=== PATIENT | female | born 1945 | race Caucasian/White ===

== ENCOUNTER 2019-09-18 20:53 | Inpatient (IN) ==
[2019-09-18] MEDS ORDERED: Naloxone 0.4 MG/ML INJ IVP PRN (23:39)
[2019-09-19] MEDS ORDERED: Albuterol 2.5 MG/3 ML NEBULIZER IH PRN (00:19)
[2019-09-19] MEDS ORDERED: Dextrose Gel 15 GM/37.5 ML TUBE PO PRN ×2 (00:21)
[2019-09-19] MEDS ORDERED: D5% in Water 1,000 ML IVC PRN (00:21)
[2019-09-19] MEDS ORDERED: *HR* Dextrose 50 % in Water (Syg) 50 ML SYRINGE IVP PRN (00:21)
[2019-09-19] MEDS: Ipratropium/Albuterol Neb 3 ML IH SCH ×3 (00:38→11:12)
[2019-09-19] MEDS ORDERED: Acetaminophen 325 MG TABLET PO PRN (05:35)
[2019-09-19] MEDS: cefTRIAXone 2,000 MG in Water for inj. (sterile) 20 ML IVP SCH (05:48)
[2019-09-19] MEDS ORDERED: *HR* Heparin 5,000 UNIT/ML VIAL SQ SCH (06:00)
[2019-09-19 06:03] LABS: Magnesium 1.6 mg/dL (1.6-2.6); Phosphorous 3.2 mg/dL (2.7-4.5)
[2019-09-19 06:04] LABS: INR 1.2; Prothrombin Time 13.5 Seconds (9.4-12.1)
[2019-09-19 07:10] LABS: Hematocrit 25.8 % (35.3-44.9); Hemoglobin 7.6 g/dL (11.5-15.4); Immature Platelets 18.6 % (1.1-6.1); Mean Corpuscular HGB Conc 29.5 g/dL (31.6-35.5); Mean Corpuscular Hemoglobin 27.6 pg (28.0-33.3); Mean Corpuscular Volume 93.8 fL (83.0-100.0); Red Blood Count 2.75 M/mcL (3.82-4.97); Red Cell Distribution Width 18.6 % (11.5-14.5); White Blood Count 1.6 K/mcL (4.3-11.1)
[2019-09-19 07:12] LABS: Platelet Count 45 K/mcL (140-400)
[2019-09-19 07:29] LABS: Albumin 2.8 g/dL (3.5-5.7); Albumin/Globulin Ratio 0.9 (1.1-2.2); Bilirubin,Total 0.2 mg/dL (0.3-1.0); Calcium 8.2 mg/dL (8.6-10.3); Potassium 3.5 mEq/L (3.5-5.1); Total Protein 5.8 g/dL (6.4-8.9)
[2019-09-19 07:47] LABS: Lymphocytes # 0.3 K/mcL (0.6-4.6); Monocytes # 0.1 K/mcL (0.0-1.3); Neutrophils # 1.2 K/mcL (1.6-8.9)
[2019-09-19 07:49] LABS: Platelet Estimate Marked Decrease (Normal)
[2019-09-19] MEDS: Insulin LISPRO 300 UNITS/3 ML VIAL SQ SCH ×3 (08:35→16:53)
[2019-09-19] MEDS ORDERED: predniSONE 20 MG TABLET PO SCH (09:00)
[2019-09-19] MEDS ORDERED: Insulin LISPRO 300 UNITS/3 ML VIAL SQ SCH (21:15)
[2019-09-20] MEDS ORDERED: Insulin DETEMIR 100 UNIT/ML X5UNITS SQ ONE ×2 (03:45→07:32)
[2019-09-20 05:25] LABS: Hemoglobin 8.8 g/dL (11.5-15.4); Red Cell Distribution Width 18.6 % (11.5-14.5)
[2019-09-20 05:27] LABS: Hematocrit 28.5 % (35.3-44.9); Immature Platelets 23.3 % (1.1-6.1); Mean Corpuscular HGB Conc 30.9 g/dL (31.6-35.5); Mean Corpuscular Hemoglobin 27.4 pg (28.0-33.3); Mean Corpuscular Volume 88.8 fL (83.0-100.0); Red Blood Count 3.21 M/mcL (3.82-4.97); White Blood Count 1.8 K/mcL (4.3-11.1)
[2019-09-20 05:31] LABS: Platelet Count 74 K/mcL (140-400)
[2019-09-20 05:43] LABS: BUN/Creatinine Ratio 21 (6-26); Blood Urea Nitrogen 21 mg/dL (8-23); Calcium 9.2 mg/dL (8.6-10.3); Carbon Dioxide 20 mEq/L (23-29); Chloride 105 mEq/L (98-107); Glucose 259 mg/dL (70-105); Magnesium 1.8 mg/dL (1.6-2.6); Osmolality,Calculated 288 (280-300); Sodium 133 mEq/L (136-145); eGFR For African Americans > 60 (> 60); eGFR For Non-African Americans 56 (> 60)
[2019-09-20] MEDS ORDERED: tiZANidine 4 MG TABLET PO PRN (07:30)
[2019-09-20 07:36] VITALS: BP 120/83
[2019-09-20] MEDS: cefTRIAXone 2,000 MG in Water for inj. (sterile) 20 ML IVP SCH (07:58)
[2019-09-20] MEDS: Insulin LISPRO 300 UNITS/3 ML VIAL SQ SCH (08:00)
[2019-09-20] MEDS ORDERED: Insulin DETEMIR 100 UNIT/ML X5UNITS SQ SCH (21:00)
[2019-09-20] MEDS ORDERED: Gabapentin 300 MG CAPSULE PO SCH (21:00)
== END 2019-09-20 11:37 | disposition home or self-care (01) | DRG 872 ==
LOC: SUATTDRO 22:39 → ICNU 22:39 → 2NENU 09-19 06:42
PROVIDERS: ADMIT Family Medicine; ATTEND Internal Medicine

== ENCOUNTER 2021-03-21 00:47 | Observation (INO) ==
[2021-03-21] MEDS ORDERED: Ondansetron 4 MG/2 ML VIAL IVP PRN (05:54)
[2021-03-21] MEDS ORDERED: Acetaminophen 325 MG TABLET PO PRN (05:54)
[2021-03-21] MEDS ORDERED: Naloxone 0.4 MG/ML INJ IVP PRN (05:54)
[2021-03-21] MEDS ORDERED: Dextrose Gel 15 GM/37.5 ML TUBE PO PRN ×2 (06:00)
[2021-03-21] MEDS ORDERED: D5% in Water 1,000 ML IVC PRN (06:00)
[2021-03-21] MEDS ORDERED: *HR* Dextrose 50 % in Water (Syg) 50 ML SYRINGE IVP PRN (06:00)
[2021-03-21] MEDS ORDERED: Ipratropium/Albuterol Neb 3 ML IH PRN (06:31)
[2021-03-21] MEDS ORDERED: Pantoprazole 80 MG in 0.9 % Sodium Chloride 50 ML IVPB ONE (06:46)
[2021-03-21] MEDS: Insulin LISPRO 300 UNITS/3 ML VIAL SUBQ SCH ×3 (08:38→17:59)
[2021-03-21] MEDS ORDERED: levoFLOXacin 750 MG/150 ML 750 MG/150 ML BAG IVPB SCH (09:00)
[2021-03-21 09:04] LABS: INR 1.4; Prothrombin Time 15.5 Seconds (9.4-12.1)
[2021-03-21 09:16] LABS: Red Cell Distribution Width 16.4 % (11.5-14.5)
[2021-03-21 09:21] LABS: Red Blood Count 3.41 M/mcL (3.82-4.97); Thyroid Stimulating Hormone 1.479 mcIU/mL (0.340-5.600)
[2021-03-21 09:23] LABS: Hematocrit 28.4 % (35.3-44.9); Hemoglobin 9.1 g/dL (11.5-15.4); Mean Corpuscular Hemoglobin 26.7 pg (28.0-33.3); Mean Corpuscular Volume 83.3 fL (83.0-100.0); Mean Platelet Volume 10.7 fL (9.4-12.4); Neutrophils # 0.4 K/mcL (1.6-8.9); Nucleated Red Blood Cells 2.3 /100 WBC (0); White Blood Count 2.2 K/mcL (4.3-11.1)
[2021-03-21 09:31] LABS: Alanine Aminotransferase 11 Units/L (7-52); Albumin 3.1 g/dL (3.5-5.7); Albumin/Globulin Ratio 0.8 (1.1-2.2); Alkaline Phosphatase 60 Units/L (34-104); Aspartate Amino Transferase 15 Units/L (13-39); BUN/Creatinine Ratio 19 (6-26); Bilirubin,Total 1.1 mg/dL (0.3-1.0); Blood Urea Nitrogen 22 mg/dL (8-23); Calcium 8.9 mg/dL (8.6-10.3); Carbon Dioxide 26 mEq/L (23-29); Chloride 104 mEq/L (98-107); Globulin 3.9 g/dL (2.4-3.5); Glucose 271 mg/dL (70-105); Osmolality,Calculated 295 (280-300); Potassium 4.7 mEq/L (3.5-5.1); Sodium 136 mEq/L (136-145); Troponin I < 0.03 ng/mL (< 0.04); eGFR For African Americans 56 (> 60); eGFR For Non-African Americans 46 (> 60)
[2021-03-21 09:32] LABS: Folate 12.2 ng/mL (3.0-16.0)
[2021-03-21 09:37] LABS: Immature Reticulocyte % 9.8 % (11.0-38.0); Platelet Count 46 K/mcL (140-400); Retculocyte # 0.02 M/mcL (0.05-0.10); Reticulocyte % 0.5 % (1.6-2.8)
[2021-03-21 09:44] LABS: Eosinophils # 0.1 K/mcL (0.0-0.6); Lymphocytes # 1.6 K/mcL (0.6-4.6); Monocytes # 0.1 K/mcL (0.0-1.3)
[2021-03-21 09:45] LABS: Platelet Estimate Decreased (Normal)
[2021-03-21 10:08] LABS: Estimated Average Glucose 232 mg/dl; Hemoglobin A1C 9.7 %
[2021-03-21] MEDS: Pantoprazole 40 MG VIAL IVP SCH (17:59)
[2021-03-21 20:49] LABS: Hematocrit 25.4 % (35.3-44.9); Hemoglobin 8.3 g/dL (11.5-15.4)
[2021-03-22] MEDS: Pantoprazole 40 MG VIAL IVP SCH (05:21)
[2021-03-22 07:45] LABS: Hemoglobin 8.7 g/dL (11.5-15.4); Nucleated Red Blood Cells 1.6 /100 WBC (0)
[2021-03-22 07:47] LABS: Hematocrit 27.3 % (35.3-44.9); Immature Platelets 12.9 % (1.1-6.1); Mean Corpuscular HGB Conc 31.9 g/dL (31.6-35.5); Mean Corpuscular Hemoglobin 26.5 pg (28.0-33.3); Mean Corpuscular Volume 83.2 fL (83.0-100.0); Monocytes # 0.1 K/mcL (0.0-1.3); Red Blood Count 3.28 M/mcL (3.82-4.97); Red Cell Distribution Width 16.3 % (11.5-14.5); White Blood Count 1.9 K/mcL (4.3-11.1)
[2021-03-22 08:00] LABS: Platelet Count 38 K/mcL (140-400)
[2021-03-22] MEDS: Insulin LISPRO 300 UNITS/3 ML VIAL SUBQ SCH ×3 (08:06→17:38)
[2021-03-22 08:36] LABS: BUN/Creatinine Ratio 13 (6-26); Blood Urea Nitrogen 14 mg/dL (8-23); Carbon Dioxide 26 mEq/L (23-29); Chloride 100 mEq/L (98-107); Glucose 282 mg/dL (70-105); Osmolality,Calculated 285 (280-300); Potassium 4.5 mEq/L (3.5-5.1); Sodium 132 mEq/L (136-145); eGFR For African Americans > 60 (> 60); eGFR For Non-African Americans 52 (> 60)
[2021-03-22] MEDS: Insulin DETEMIR 100 UNIT/ML X5UNITS SUBQ SCH (11:05)
[2021-03-22 14:15] LABS: Lymphocytes # 1.5 K/mcL (0.6-4.6); Neutrophils # 0.3 K/mcL (1.6-8.9); Platelet Estimate Marked Decrease (Normal); Reactive Lymphocytes Present (Not Present)
[2021-03-22 14:17] LABS: Anisocytosis 1+ (Not Present)
[2021-03-22] MEDS ORDERED: *HR* HYDROcodone/Acet 5/325 mg TABLET PO PRN (17:31)
[2021-03-22 19:45] LABS: Bacteria,Urine Few per hpf (None-Few); Bilirubin,Urine Negative (Negative); Blood,Urine Moderate (Negative); Clarity,Urine Clear (Clear); Color,Urine Light-Yellow (Yellow); Glucose,Urine (UA) 200 mg/dL (Normal); Ketones,Urine Negative (Negative); Leukocyte Esterase,Urine Small (Negative); Mucus,Urine Few per lpf (None-Few); Nitrite,Urine Negative (Negative); PH,Urine 6.5 pH Units (5.0-8.0); Protein,Urine Trace mg/dL (Neg-Trace); RBC,Urine 0-3 per hpf (0-3); Specific Gravity,Urine 1.011 (1.010-1.025); Urobilinogen,Urine Normal (Normal); WBC,Urine 0-3 per hpf (0-3)
[2021-03-22] MEDS ORDERED: Insulin LISPRO 300 UNITS/3 ML VIAL SUBQ SCH (21:00)
[2021-03-22] MEDS ORDERED: Gabapentin 300 MG CAPSULE PO SCH (21:00)
[2021-03-23 04:56] LABS: Hematocrit 28.4 % (35.3-44.9); Immature Platelets 14.2 % (1.1-6.1); Mean Corpuscular HGB Conc 31.7 g/dL (31.6-35.5); Mean Corpuscular Hemoglobin 26.5 pg (28.0-33.3); Mean Corpuscular Volume 83.8 fL (83.0-100.0); Red Blood Count 3.39 M/mcL (3.82-4.97); Red Cell Distribution Width 16.7 % (11.5-14.5); White Blood Count 2.3 K/mcL (4.3-11.1)
[2021-03-23 04:58] LABS: Platelet Count 34 K/mcL (140-400)
[2021-03-23 05:08] LABS: Potassium 4.3 mEq/L (3.5-5.1)
[2021-03-23] MEDS: Insulin DETEMIR 100 UNIT/ML X5UNITS SUBQ SCH (08:38)
[2021-03-23] MEDS: Insulin LISPRO 300 UNITS/3 ML VIAL SUBQ SCH ×2 (08:38→11:48)
[2021-03-23] MEDS ORDERED: levoFLOXacin 750 MG TABLET PO SCH (09:00)
[2021-03-23] MEDS ORDERED: *HR* Midazolam HCl 2 MG/2 ML VIAL IVP ONE (09:03)
[2021-03-23] MEDS ORDERED: *HR* FentaNYL (PF) 100 MCG/2 ML VIAL IVP ONE (09:03)
[2021-03-23] MEDS ORDERED: 0.9 % Sodium Chloride 500 ML ONE (11:44)
[2021-03-23 13:08] VITALS: BP 106/63; PULSE 79; TEMP 98.2; O2SAT 97
== END 2021-03-23 14:11 | disposition home or self-care (01) ==
LOC: 3ANU → SUATTDRO 05:42
PROVIDERS: ADMIT Family Medicine; ATTEND Internal Medicine

== ENCOUNTER 2021-03-31 21:32 | Observation (INO) ==
[2021-04-01] MEDS ORDERED: Ondansetron 4 MG/2 ML VIAL IVP PRN (10:56)
[2021-04-01] MEDS ORDERED: Naloxone 0.4 MG/ML INJ IVP PRN (10:56)
[2021-04-01] MEDS ORDERED: *HR* Dextrose 50 % in Water (Syg) 50 ML SYRINGE IVP PRN (11:02)
[2021-04-01] MEDS ORDERED: Dextrose Gel 15 GM/37.5 ML TUBE PO PRN ×2 (11:02)
[2021-04-01] MEDS ORDERED: D5% in Water 1,000 ML IVC PRN (11:02)
[2021-04-01 11:36] LABS: Adenovirus Not Detected (Not Detect); Bordetella Pertussis Not Detected (Not Detect); Chlamydophila pneumoniae Not Detected (Not Detect); Coronavirus 229E Not Detected (Not Detect); Coronavirus HKU1 Not Detected (Not Detect); Coronavirus NL63 Not Detected (Not Detect); Coronavirus OC43 Not Detected (Not Detect); Human Metapneumovirus Not Detected (Not Detect); Human Rhinovirus/Enterovirus DETECTED (Not Detect); Influenza A Subtype 2009 H1 Not Detected (Not Detect); Influenza B Not Detected (Not Detect); Mycoplasma pneumoniae Not Detected (Not Detect); Parainfluenza Virus 1 Not Detected (Not Detect); Parainfluenza Virus 2 Not Detected (Not Detect); Parainfluenza Virus 3 Not Detected (Not Detect); Parainfluenza Virus 4 Not Detected (Not Detect); Respiratory Syncytial Virus Not Detected (Not Detect); SARS-CoV-2 Not Detected (Not Detect)
[2021-04-01] MEDS: Insulin LISPRO 300 UNITS/3 ML VIAL SUBQ SCH ×2 (12:00→17:47)
[2021-04-01] MEDS: Pantoprazole 40 MG VIAL IVP SCH ×2 (12:01→18:20)
[2021-04-01 13:05] LABS: Basophils % 0.6 %; Hemoglobin 7.8 g/dL (11.5-15.4); Red Cell Distribution Width 16.4 % (11.5-14.5)
[2021-04-01 13:07] LABS: Eosinophils % 2.3 %; Hematocrit 24.8 % (35.3-44.9); Immature Granulocytes % 0.6 % (0-4); Immature Platelets 16.9 % (1.1-6.1); Lymphocytes % 56.1 %; Mean Corpuscular HGB Conc 31.5 g/dL (31.6-35.5); Mean Corpuscular Hemoglobin 26.2 pg (28.0-33.3); Mean Corpuscular Volume 83.2 fL (83.0-100.0); Monocytes # 0.2 K/mcL (0.0-1.3); Monocytes % 13.3 %; Neutrophils # 0.5 K/mcL (1.6-8.9); Nucleated Red Blood Cells 1.2 /100 WBC (0); Red Blood Count 2.98 M/mcL (3.82-4.97); Segmented Neutrophils % 27.1 %; White Blood Count 1.7 K/mcL (4.3-11.1)
[2021-04-01 13:14] LABS: INR 1.5; Prothrombin Time 16.9 Seconds (9.4-12.1)
[2021-04-01 13:17] LABS: Activated Partial Thrombo Time 30.2 Seconds (26.0-36.0)
[2021-04-01 13:18] LABS: Platelet Count 18 K/mcL (140-400)
[2021-04-01 13:25] LABS: BUN/Creatinine Ratio 20 (6-26); Blood Urea Nitrogen 20 mg/dL (8-23); Calcium 8.9 mg/dL (8.6-10.3); Carbon Dioxide 27 mEq/L (23-29); Chloride 102 mEq/L (98-107); Glucose 65 mg/dL (70-105); Osmolality,Calculated 283 (280-300); Potassium 3.8 mEq/L (3.5-5.1); Sodium 136 mEq/L (136-145); eGFR For African Americans > 60 (> 60); eGFR For Non-African Americans 53 (> 60)
[2021-04-01 13:51] LABS: Platelet Estimate Marked Decrease (Normal)
[2021-04-02] MEDS: Insulin LISPRO 300 UNITS/3 ML VIAL SUBQ SCH ×4 (01:36→17:39)
[2021-04-02] MEDS: Pantoprazole 40 MG VIAL IVP SCH (05:53)
[2021-04-02 06:17] LABS: Hematocrit 24.7 % (35.3-44.9); Immature Granulocytes % 1.3 % (0-4); Lymphocytes # 0.9 K/mcL (0.6-4.6); Mean Corpuscular HGB Conc 32.4 g/dL (31.6-35.5); Mean Corpuscular Hemoglobin 26.8 pg (28.0-33.3); Mean Corpuscular Volume 82.6 fL (83.0-100.0); Monocytes # 0.2 K/mcL (0.0-1.3); Monocytes % 13.9 %; Neutrophils # 0.4 K/mcL (1.6-8.9); Nucleated Red Blood Cells 1.3 /100 WBC (0); Red Blood Count 2.99 M/mcL (3.82-4.97); Red Cell Distribution Width 16.1 % (11.5-14.5); Segmented Neutrophils % 25.8 %; White Blood Count 1.5 K/mcL (4.3-11.1)
[2021-04-02 06:22] LABS: Platelet Count 13 K/mcL (140-400)
[2021-04-02 06:25] LABS: Platelet Estimate Marked Decrease (Normal)
[2021-04-02 06:29] LABS: INR 1.5; Prothrombin Time 16.5 Seconds (9.4-12.1)
[2021-04-02 06:35] LABS: BUN/Creatinine Ratio 18 (6-26); Blood Urea Nitrogen 16 mg/dL (8-23); Calcium 8.7 mg/dL (8.6-10.3); Carbon Dioxide 26 mEq/L (23-29); Chloride 101 mEq/L (98-107); Glucose 226 mg/dL (70-105); Osmolality,Calculated 286 (280-300); Potassium 3.8 mEq/L (3.5-5.1); Sodium 134 mEq/L (136-145); eGFR For African Americans > 60 (> 60); eGFR For Non-African Americans > 60 (> 60)
[2021-04-02] MEDS ORDERED: levoFLOXacin 750 MG/150 ML 750 MG/150 ML BAG IVPB SCH (09:00)
[2021-04-02] MEDS ORDERED: Insulin DETEMIR 100 UNIT/ML X5UNITS SUBQ SCH (21:00)
[2021-04-02] MEDS: Gabapentin 300 MG CAPSULE PO SCH (21:21)
[2021-04-03 06:26] LABS: Hematocrit 22.8 % (35.3-44.9)
[2021-04-03 06:28] LABS: Hemoglobin 7.5 g/dL (11.5-15.4); Immature Platelets 16.9 % (1.1-6.1); Mean Corpuscular HGB Conc 32.9 g/dL (31.6-35.5); Mean Corpuscular Hemoglobin 27.1 pg (28.0-33.3); Mean Corpuscular Volume 82.3 fL (83.0-100.0); Red Blood Count 2.77 M/mcL (3.82-4.97); Red Cell Distribution Width 15.8 % (11.5-14.5); White Blood Count 1.6 K/mcL (4.3-11.1)
[2021-04-03 06:36] LABS: Platelet Count 20 K/mcL (140-400)
[2021-04-03 06:58] LABS: BUN/Creatinine Ratio 16 (6-26); Blood Urea Nitrogen 14 mg/dL (8-23); Calcium 8.9 mg/dL (8.6-10.3); Carbon Dioxide 25 mEq/L (23-29); Chloride 101 mEq/L (98-107); Glucose 104 mg/dL (70-105); Magnesium 1.5 mg/dL (1.6-2.6); Osmolality,Calculated 283 (280-300); Potassium 3.8 mEq/L (3.5-5.1); Sodium 136 mEq/L (136-145); eGFR For African Americans > 60 (> 60); eGFR For Non-African Americans > 60 (> 60)
[2021-04-03 07:11] LABS: Ferritin > 1500 ng/mL (10-120)
[2021-04-03 07:14] LABS: Folate 10.4 ng/mL (3.0-16.0)
[2021-04-03] MEDS: Gabapentin 300 MG CAPSULE PO SCH (09:50)
[2021-04-03] MEDS: Insulin LISPRO 300 UNITS/3 ML VIAL SUBQ SCH ×2 (09:50→12:54)
[2021-04-03 12:43] VITALS: BP 116/61; PULSE 102; TEMP 99; O2SAT 90
[2021-04-04] MEDS ORDERED: levoFLOXacin 750 MG/150 ML 750 MG/150 ML BAG IVPB SCH (09:00)
== END 2021-04-03 14:29 | disposition home or self-care (01) ==
LOC: 3ANU → SUATTDRO 04-01 09:37
PROVIDERS: ADMIT Family Medicine; ATTEND Internal Medicine

== ENCOUNTER 2021-04-11 18:05 | Inpatient (IN) ==
[2021-04-11 19:13] LABS: Basophils % 0.6 %; Eosinophils % 1.8 %; Immature Granulocytes % 3.6 % (0-4); Lymphocytes # 0.6 K/mcL (0.6-4.6); Lymphocytes % 37.1 %; Mean Corpuscular HGB Conc 31.6 g/dL (31.6-35.5); Mean Corpuscular Hemoglobin 26.7 pg (28.0-33.3); Mean Corpuscular Volume 84.4 fL (83.0-100.0); Monocytes # 0.4 K/mcL (0.0-1.3); Monocytes % 22.2 %; Neutrophils # 0.6 K/mcL (1.6-8.9); Red Blood Count 2.25 M/mcL (3.82-4.97); Red Cell Distribution Width 15.8 % (11.5-14.5); Segmented Neutrophils % 34.7 %; White Blood Count 1.7 K/mcL (4.3-11.1)
[2021-04-11 19:38] LABS: BUN/Creatinine Ratio 14 (6-26); Blood Urea Nitrogen 14 mg/dL (8-23); Calcium 8.2 mg/dL (8.6-10.3); Carbon Dioxide 26 mEq/L (23-29); Chloride 99 mEq/L (98-107); Glucose 298 mg/dL (70-105); Osmolality,Calculated 286 (280-300); Potassium 4.1 mEq/L (3.5-5.1); Sodium 132 mEq/L (136-145); Troponin I < 0.03 ng/mL (< 0.04); eGFR For African Americans > 60 (> 60); eGFR For Non-African Americans 53 (> 60)
[2021-04-11 19:41] LABS: Hypochromasia Present (Not Present); Microcytosis Present (Not Present); Platelet Count 20 K/mcL (140-400); Platelet Estimate Decreased (Normal)
[2021-04-11] MEDS ORDERED: 0.9 % Sodium Chloride 250 ML ONE (20:27)
[2021-04-11] MEDS ORDERED: Ondansetron 4 MG/2 ML VIAL IVP PRN (22:59)
[2021-04-11] MEDS ORDERED: Naloxone 0.4 MG/ML INJ IVP PRN (22:59)
[2021-04-11] MEDS ORDERED: Insulin DETEMIR 100 UNIT/ML X5UNITS SUBQ SCH (23:45)
[2021-04-11] MEDS ORDERED: Ipratropium/Albuterol Neb 3 ML IH PRN (23:50)
[2021-04-11] MEDS ORDERED: *HR* Dextrose 50 % in Water (Syg) 50 ML SYRINGE IVP PRN (23:50)
[2021-04-11] MEDS ORDERED: D5% in Water 1,000 ML IVC PRN (23:50)
[2021-04-11] MEDS ORDERED: Dextrose Gel 15 GM/37.5 ML TUBE PO PRN ×2 (23:50)
[2021-04-11] MEDS ORDERED: *HR* HYDROcodone/Acet 5/325 mg TABLET PO PRN (23:56)
[2021-04-12 00:57] LABS: Adenovirus Not Detected (Not Detect); Bordetella Pertussis Not Detected (Not Detect); Chlamydophila pneumoniae Not Detected (Not Detect); Coronavirus 229E Not Detected (Not Detect); Coronavirus HKU1 Not Detected (Not Detect); Coronavirus NL63 Not Detected (Not Detect); Coronavirus OC43 Not Detected (Not Detect); Human Metapneumovirus Not Detected (Not Detect); Human Rhinovirus/Enterovirus Not Detected (Not Detect); Influenza A Subtype 2009 H1 Not Detected (Not Detect); Influenza B Not Detected (Not Detect); Mycoplasma pneumoniae Not Detected (Not Detect); Parainfluenza Virus 1 Not Detected (Not Detect); Parainfluenza Virus 2 Not Detected (Not Detect); Parainfluenza Virus 3 Not Detected (Not Detect); Parainfluenza Virus 4 Not Detected (Not Detect); Respiratory Syncytial Virus Not Detected (Not Detect); SARS-CoV-2 Not Detected (Not Detect)
[2021-04-12 01:49] LABS: Basophils % 0.5 %; Eosinophils % 1.9 %; Hematocrit 23.3 % (35.3-44.9); Hemoglobin 7.5 g/dL (11.5-15.4); Immature Granulocytes % 2.8 % (0-4); Immature Platelets 14.5 % (1.1-6.1); Lymphocytes % 52.3 %; Mean Corpuscular HGB Conc 32.2 g/dL (31.6-35.5); Mean Corpuscular Hemoglobin 27.6 pg (28.0-33.3); Mean Corpuscular Volume 85.7 fL (83.0-100.0); Monocytes # 0.3 K/mcL (0.0-1.3); Monocytes % 14.8 %; Neutrophils # 0.6 K/mcL (1.6-8.9); Red Blood Count 2.72 M/mcL (3.82-4.97); Segmented Neutrophils % 27.7 %; White Blood Count 2.2 K/mcL (4.3-11.1)
[2021-04-12 01:58] LABS: Lymphocytes # 1.2 K/mcL (0.6-4.6)
[2021-04-12 02:00] LABS: Platelet Count 21 K/mcL (140-400)
[2021-04-12 02:05] LABS: BUN/Creatinine Ratio 16 (6-26); Blood Urea Nitrogen 16 mg/dL (8-23); Calcium 8.2 mg/dL (8.6-10.3); Carbon Dioxide 24 mEq/L (23-29); Chloride 100 mEq/L (98-107); Glucose 361 mg/dL (70-105); Osmolality,Calculated 290 (280-300); Potassium 3.7 mEq/L (3.5-5.1); Sodium 132 mEq/L (136-145); eGFR For African Americans > 60 (> 60); eGFR For Non-African Americans 56 (> 60)
[2021-04-12 02:36] LABS: Anisocytosis 1+ (Not Present); Microcytosis Present (Not Present); Platelet Estimate Marked Decrease (Normal); Reactive Lymphocytes Present (Not Present)
[2021-04-12] MEDS ORDERED: Vancomycin 1,500 MG/265 ML IV.SOLN IVPB ONE (03:00)
[2021-04-12 05:46] LABS: VBG HCO3 25 mEq/L (21-27); VBG PCO2 37 mmHg (41-51); VBG PH 7.44 pH Units (7.32-7.42); VBG PO2 147 mmHg (25-50)
[2021-04-12] MEDS ORDERED: Cefepime HCl 1,000 MG in Water for inj. (sterile) 10 ML IVP SCH (06:00)
[2021-04-12] MEDS ORDERED: *HR* Enoxaparin 40 MG/0.4 ML SYRINGE SQ SCH (06:00)
[2021-04-12 06:15] LABS: Albumin 2.6 g/dL (3.5-5.7); Albumin/Globulin Ratio 0.8 (1.1-2.2); Bilirubin,Direct 0.2 mg/dL (0.0-0.2); Bilirubin,Indirect 0.7 mg/dL (0.0-1.0); Bilirubin,Total 0.9 mg/dL (0.3-1.0); Globulin 3.4 g/dL (2.4-3.5)
[2021-04-12] MEDS: Gabapentin 300 MG CAPSULE PO SCH ×3 (07:52→21:23)
[2021-04-12] MEDS: Insulin LISPRO 300 UNITS/3 ML VIAL SUBQ SCH ×3 (07:53→17:35)
[2021-04-12] MEDS ORDERED: Insulin LISPRO 300 UNITS/3 ML VIAL SUBQ SCH (08:00)
[2021-04-12 11:59] LABS: Hematocrit 31.3 % (35.3-44.9)
[2021-04-12 12:01] LABS: Hemoglobin 9.9 g/dL (11.5-15.4)
[2021-04-12] MEDS ORDERED: Ipratropium Neb 0.5 MG NEBULIZER IH PRN (13:20)
[2021-04-12] MEDS: Doxycycline 100 MG in 0.9 % Sodium Chloride Mini Bag 100 ML IVPB SCH (15:17)
[2021-04-12] MEDS: Ipratropium/Albuterol Neb 3 ML IH SCH ×2 (16:09→20:07)
[2021-04-12] MEDS: Cefepime HCl 2,000 MG in Water for inj. (sterile) 20 ML IVP SCH (17:29)
[2021-04-12] MEDS: Acetaminophen 325 MG TABLET PO PRN (17:29)
[2021-04-12] MEDS ORDERED: Cefepime HCl 2,000 MG in 0.9 % Sodium Chloride Mini Bag 100 ML IVPB ONE (21:39)
[2021-04-13] MEDS: Doxycycline 100 MG in 0.9 % Sodium Chloride Mini Bag 100 ML IVPB SCH ×2 (02:48→17:13)
[2021-04-13] MEDS ORDERED: Vancomycin 1,250 MG/262.5 ML IV.SOLN IVPB SCH (03:00)
[2021-04-13] MEDS: Acetaminophen 325 MG TABLET PO PRN ×2 (03:46→14:09)
[2021-04-13] MEDS: Ipratropium/Albuterol Neb 3 ML IH SCH ×4 (04:18→20:06)
[2021-04-13] MEDS: Cefepime HCl 2,000 MG in Water for inj. (sterile) 20 ML IVP SCH ×2 (05:38→17:12)
[2021-04-13 06:48] LABS: Red Cell Distribution Width 15.2 % (11.5-14.5)
[2021-04-13 06:50] LABS: Hematocrit 27.5 % (35.3-44.9); Hemoglobin 8.9 g/dL (11.5-15.4); Immature Platelets 17.1 % (1.1-6.1); Mean Corpuscular HGB Conc 32.4 g/dL (31.6-35.5); Mean Corpuscular Hemoglobin 27.2 pg (28.0-33.3); Mean Corpuscular Volume 84.1 fL (83.0-100.0); Red Blood Count 3.27 M/mcL (3.82-4.97); White Blood Count 1.9 K/mcL (4.3-11.1)
[2021-04-13 06:54] LABS: Platelet Count 18 K/mcL (140-400)
[2021-04-13 07:10] LABS: BUN/Creatinine Ratio 17 (6-26); Blood Urea Nitrogen 13 mg/dL (8-23); Calcium 8.3 mg/dL (8.6-10.3); Carbon Dioxide 25 mEq/L (23-29); Chloride 104 mEq/L (98-107); Glucose 224 mg/dL (70-105); Magnesium 1.4 mg/dL (1.6-2.6); Osmolality,Calculated 289 (280-300); Potassium 3.4 mEq/L (3.5-5.1); Sodium 136 mEq/L (136-145); eGFR For African Americans > 60 (> 60); eGFR For Non-African Americans > 60 (> 60)
[2021-04-13 07:28] LABS: Bacteria,Urine Few per hpf (None-Few); Bilirubin,Urine Negative (Negative); Blood,Urine Negative (Negative); Clarity,Urine Clear (Clear); Color,Urine Light-Yellow (Yellow); Glucose,Urine (UA) Normal (Normal); Ketones,Urine Negative (Negative); Leukocyte Esterase,Urine Moderate (Negative); Nitrite,Urine Negative (Negative); PH,Urine 6.5 pH Units (5.0-8.0); Protein,Urine Trace mg/dL (Neg-Trace); Specific Gravity,Urine 1.012 (1.010-1.025); Squamous Epithelial Cell,Urine Few per hpf (None-Few); Urobilinogen,Urine Normal (Normal); WBC,Urine 30-50 per hpf (0-3)
[2021-04-13] MEDS: Gabapentin 300 MG CAPSULE PO SCH ×2 (07:46→20:17)
[2021-04-13] MEDS ORDERED: Furosemide 20 MG/2 ML VIAL IVP ONE (07:55)
[2021-04-13] MEDS ORDERED: Potassium Chloride 20 MEQ, Lidocaine 1% 2 ML in 0.9 % Sodium Chloride 250 ML IVPB ONE (07:57)
[2021-04-13 07:59] LABS: Lymphocytes # 1.1 K/mcL (0.6-4.6); Monocytes # 0.1 K/mcL (0.0-1.3); Neutrophils # 0.6 K/mcL (1.6-8.9)
[2021-04-13 08:00] LABS: Large Platelets Present (Not Present); Platelet Estimate Marked Decrease (Normal)
[2021-04-13 08:01] LABS: Anisocytosis 1+ (Not Present); Microcytosis Present (Not Present)
[2021-04-13] MEDS: Insulin LISPRO 300 UNITS/3 ML VIAL SUBQ SCH ×3 (08:47→17:18)
[2021-04-13] MEDS ORDERED: 0.9 % Sodium Chloride 250 ML ONE (12:19)
[2021-04-13] MEDS ORDERED: *HR* Propofol 200 MG/20 ML VIAL IVP ONE (12:40)
[2021-04-13] MEDS ORDERED: *HR* Succinylcholine 200 MG/10 ML VIAL IVP ONE (12:40)
[2021-04-13] MEDS ORDERED: Lidocaine -MPF 2% 5 ML VIAL ONE (12:41)
[2021-04-13] MEDS ORDERED: Lidocaine HCL 4 ML Topical Solution (Laryng-O-Jet Kit Sterile Pak) TP ONE (15:07)
[2021-04-13] MEDS ORDERED: *HR* FentaNYL (PF) 100 MCG/2 ML VIAL ONE (15:31)
[2021-04-13] MEDS ORDERED: Ondansetron 4 MG/2 ML VIAL ONE (15:36)
[2021-04-13] MEDS ORDERED: *HR* EPINEPHrine 1 MG/10 ML SYRINGE INTRATRACH PRN (16:01)
[2021-04-13 22:28] LABS: Appearance of Body Fluid Cloudy (Clear); Volume of Body Fluid 14 mL
[2021-04-13 22:36] LABS: Appearance of Body Fluid Hazy (Clear); Volume of Body Fluid 8 mL
[2021-04-14] MEDS: Doxycycline 100 MG in 0.9 % Sodium Chloride Mini Bag 100 ML IVPB SCH ×2 (02:59→14:26)
[2021-04-14] MEDS: Ipratropium/Albuterol Neb 3 ML IH SCH ×4 (04:21→20:41)
[2021-04-14 04:43] LABS: Hemoglobin 8.8 g/dL (11.5-15.4); Red Cell Distribution Width 15.5 % (11.5-14.5)
[2021-04-14 04:45] LABS: Hematocrit 27.8 % (35.3-44.9); Immature Platelets 10.6 % (1.1-6.1); Mean Corpuscular HGB Conc 31.7 g/dL (31.6-35.5); Mean Corpuscular Hemoglobin 27.6 pg (28.0-33.3); Mean Corpuscular Volume 87.1 fL (83.0-100.0); Mean Platelet Volume 12.4 fL (9.4-12.4); Monocytes # 0.2 K/mcL (0.0-1.3); Red Blood Count 3.19 M/mcL (3.82-4.97); White Blood Count 1.4 K/mcL (4.3-11.1)
[2021-04-14 04:52] LABS: Platelet Count 36 K/mcL (140-400)
[2021-04-14 05:01] LABS: BUN/Creatinine Ratio 22 (6-26); Blood Urea Nitrogen 20 mg/dL (8-23); Calcium 8.3 mg/dL (8.6-10.3); Carbon Dioxide 24 mEq/L (23-29); Chloride 101 mEq/L (98-107); Glucose 455 mg/dL (70-105); Osmolality,Calculated 298 (280-300); Potassium 4.8 mEq/L (3.5-5.1); Sodium 133 mEq/L (136-145); eGFR For African Americans > 60 (> 60); eGFR For Non-African Americans > 60 (> 60)
[2021-04-14] MEDS: Cefepime HCl 2,000 MG in Water for inj. (sterile) 20 ML IVP SCH ×2 (05:14→18:17)
[2021-04-14] MEDS: Gabapentin 300 MG CAPSULE PO SCH ×2 (08:06→21:42)
[2021-04-14] MEDS: Insulin LISPRO 300 UNITS/3 ML VIAL SUBQ SCH ×3 (08:07→16:35)
[2021-04-14 08:09] LABS: Lymphocytes # 0.7 K/mcL (0.6-4.6); Neutrophils # 0.5 K/mcL (1.6-8.9); Platelet Estimate Marked Decrease (Normal); Reactive Lymphocytes Present (Not Present)
[2021-04-14 08:11] LABS: Microcytosis Present (Not Present); Poikilocytosis 1+ (Not Present)
[2021-04-14] MEDS ORDERED: E-Z-HD (BARIUM SULF) SUSPENSION PO ONE (12:16)
[2021-04-14] MEDS ORDERED: E-Z-PAQUE (BARIUM SULF) SUSP 1 BOTTLE PO ONE (12:16)
[2021-04-14] MEDS ORDERED: Insulin DETEMIR 100 UNIT/ML X5UNITS SUBQ SCH (21:00)
[2021-04-14] MEDS: metroNIDAZOLE 500 MG TABLET PO SCH (21:43)
[2021-04-14] MEDS: Acetaminophen 325 MG TABLET PO PRN (23:03)
[2021-04-15] MEDS: Doxycycline 100 MG in 0.9 % Sodium Chloride Mini Bag 100 ML IVPB SCH (02:51)
[2021-04-15 03:57] LABS: Basophils % 0.4 %; Hemoglobin 9.1 g/dL (11.5-15.4)
[2021-04-15 03:59] LABS: Eosinophils % 1.3 %; Immature Granulocytes % 2.6 % (0-4); Immature Platelets 11.3 % (1.1-6.1); Lymphocytes # 1.5 K/mcL (0.6-4.6); Lymphocytes % 66.7 %; Mean Corpuscular HGB Conc 32.5 g/dL (31.6-35.5); Mean Corpuscular Volume 86.2 fL (83.0-100.0); Monocytes # 0.4 K/mcL (0.0-1.3); Monocytes % 16.5 %; Neutrophils # 0.3 K/mcL (1.6-8.9); Red Blood Count 3.25 M/mcL (3.82-4.97); Red Cell Distribution Width 15.1 % (11.5-14.5); Segmented Neutrophils % 12.5 %; White Blood Count 2.3 K/mcL (4.3-11.1)
[2021-04-15 04:15] LABS: Platelet Count 36 K/mcL (140-400)
[2021-04-15 04:19] LABS: BUN/Creatinine Ratio 22 (6-26); Blood Urea Nitrogen 20 mg/dL (8-23); Calcium 8.6 mg/dL (8.6-10.3); Carbon Dioxide 27 mEq/L (23-29); Chloride 104 mEq/L (98-107); Glucose 167 mg/dL (70-105); Magnesium 1.6 mg/dL (1.6-2.6); Osmolality,Calculated 292 (280-300); Potassium 3.6 mEq/L (3.5-5.1); Sodium 138 mEq/L (136-145); eGFR For African Americans > 60 (> 60); eGFR For Non-African Americans 59 (> 60)
[2021-04-15] MEDS: Ipratropium/Albuterol Neb 3 ML IH SCH ×2 (04:27→08:10)
[2021-04-15 04:40] LABS: Platelet Estimate Decreased (Normal)
[2021-04-15] MEDS: Cefepime HCl 2,000 MG in Water for inj. (sterile) 20 ML IVP SCH (05:56)
[2021-04-15 07:15] VITALS: BP 124/59; PULSE 110; TEMP 98.5; O2SAT 95
[2021-04-15] MEDS: Insulin LISPRO 300 UNITS/3 ML VIAL SUBQ SCH (07:47)
[2021-04-15] MEDS: metroNIDAZOLE 500 MG TABLET PO SCH (08:13)
[2021-04-15] MEDS: Gabapentin 300 MG CAPSULE PO SCH (08:13)
== END 2021-04-15 09:58 | disposition home or self-care (01) | DRG 981 ==
LOC: EMEROOARM 18:05 → 3ANU 18:05 → SUATTDRO 21:51 → 3ANU 22:29
PROVIDERS: ADMIT Student in an Organized Health Care Education/Training Program; ATTEND Internal Medicine

== ENCOUNTER 2021-04-22 12:47 | Observation (INO) ==
[2021-04-22 13:31] LABS: Red Blood Count 3.09 M/mcL (3.82-4.97)
[2021-04-22 13:33] LABS: Hematocrit 26.5 % (35.3-44.9); Hemoglobin 8.5 g/dL (11.5-15.4); Immature Platelets 23.9 % (1.1-6.1); Lymphocytes # 0.9 K/mcL (0.6-4.6); Mean Corpuscular HGB Conc 32.1 g/dL (31.6-35.5); Mean Corpuscular Hemoglobin 27.5 pg (28.0-33.3); Mean Corpuscular Volume 85.8 fL (83.0-100.0); Platelet Count 40 K/mcL (140-400); Red Cell Distribution Width 14.7 % (11.5-14.5); White Blood Count 2.2 K/mcL (4.3-11.1)
[2021-04-22 13:38] LABS: INR 1.6; Prothrombin Time 17.5 Seconds (9.4-12.1)
[2021-04-22 13:48] LABS: Alanine Aminotransferase 5 Units/L (7-52); Albumin 2.8 g/dL (3.5-5.7); Albumin/Globulin Ratio 0.8 (1.1-2.2); Alkaline Phosphatase 45 Units/L (34-104); Aspartate Amino Transferase 9 Units/L (13-39); BUN/Creatinine Ratio 17 (6-26); Bilirubin,Indirect 0.4 mg/dL (0.0-1.0); Bilirubin,Total 0.4 mg/dL (0.3-1.0); Blood Urea Nitrogen 14 mg/dL (8-23); Calcium 8.7 mg/dL (8.6-10.3); Carbon Dioxide 28 mEq/L (23-29); Chloride 94 mEq/L (98-107); Creatine Kinase 27 Units/L (30-223); Globulin 3.7 g/dL (2.4-3.5); Glucose 340 mg/dL (70-105); Osmolality,Calculated 284 (280-300); Potassium 4.3 mEq/L (3.5-5.1); Sodium 130 mEq/L (136-145); Total Protein 6.5 g/dL (6.4-8.9); Troponin I < 0.03 ng/mL (< 0.04); eGFR For African Americans > 60 (> 60); eGFR For Non-African Americans > 60 (> 60)
[2021-04-22 13:51] LABS: Bilirubin,Urine Negative (Negative); Blood,Urine Negative (Negative); Clarity,Urine Clear (Clear); Color,Urine Yellow (Yellow); Glucose,Urine (UA) >=1000 mg/dL (Normal); Ketones,Urine 40 mg/dL (Negative); Leukocyte Esterase,Urine Negative (Negative); Nitrite,Urine Negative (Negative); Protein,Urine 50 mg/dL (Neg-Trace); Specific Gravity,Urine 1.024 (1.010-1.025); Squamous Epithelial Cell,Urine Few per hpf (None-Few); Urobilinogen,Urine Normal (Normal)
[2021-04-22 13:58] LABS: Monocytes # 0.1 K/mcL (0.0-1.3); Neutrophils # 0.9 K/mcL (1.6-8.9)
[2021-04-22 13:59] LABS: Platelet Estimate Marked Decrease (Normal)
[2021-04-22] MEDS ORDERED: Naloxone 0.4 MG/ML INJ IVP PRN (15:32)
[2021-04-22] MEDS ORDERED: *HR* Promethazine 25 MG/ML VIAL IM PRN (15:32)
[2021-04-22] MEDS ORDERED: Ondansetron 4 MG/2 ML VIAL IVP PRN (15:32)
[2021-04-22] MEDS ORDERED: Acetaminophen 325 MG TABLET PO PRN (15:32)
[2021-04-22] MEDS ORDERED: Melatonin 3 MG TABLET PO PRN (15:32)
[2021-04-22 16:11] LABS: Influenza A PCR Negative (Negative); Influenza B PCR Negative (Negative); Resp. Syncytial Virus PCR Negative (Negative)
[2021-04-22 16:13] LABS: SARS-CoV-2 by PCR (In House) Negative (Negative)
[2021-04-22 16:14] LABS: VBG HCO3 28 mEq/L (21-27); VBG PCO2 39 mmHg (41-51); VBG PH 7.46 pH Units (7.32-7.42); VBG PO2 189 mmHg (25-50)
[2021-04-22] MEDS: Ringers Solution, Lactated 1,000 ML IVC SCH (20:23)
[2021-04-22] MEDS ORDERED: Insulin DETEMIR 100 UNIT/ML X5UNITS SUBQ SCH (21:00)
[2021-04-23] MEDS: Ringers Solution, Lactated 1,000 ML IVC SCH (04:26)
[2021-04-23 05:31] LABS: INR 1.5; Prothrombin Time 16.5 Seconds (9.4-12.1)
[2021-04-23 05:48] LABS: Alanine Aminotransferase 4 Units/L (7-52); Albumin 2.6 g/dL (3.5-5.7); Albumin/Globulin Ratio 0.8 (1.1-2.2); Alkaline Phosphatase 38 Units/L (34-104); Aspartate Amino Transferase 8 Units/L (13-39); BUN/Creatinine Ratio 17 (6-26); Bilirubin,Total 0.3 mg/dL (0.3-1.0); Blood Urea Nitrogen 12 mg/dL (8-23); Calcium 8.4 mg/dL (8.6-10.3); Carbon Dioxide 32 mEq/L (23-29); Chloride 98 mEq/L (98-107); Globulin 3.4 g/dL (2.4-3.5); Glucose 240 mg/dL (70-105); Magnesium 1.6 mg/dL (1.6-2.6); Osmolality,Calculated 286 (280-300); Potassium 3.9 mEq/L (3.5-5.1); Sodium 134 mEq/L (136-145); eGFR For African Americans > 60 (> 60); eGFR For Non-African Americans > 60 (> 60)
[2021-04-23 08:21] VITALS: BP 128/73; PULSE 101; TEMP 99.2; O2SAT 97
== END 2021-04-23 13:23 | disposition home or self-care (01) ==
LOC: SUATTDRO → EMEROOARM 12:47 → 3BNU 12:47 → SUATTDRO 16:52 → 3BNU 17:14
PROVIDERS: ADMIT Family Medicine; ATTEND Internal Medicine

== ENCOUNTER 2021-05-13 20:29 | Inpatient (IN) ==
[2021-05-13 22:48] LABS: Basophils % 0.8 %; Eosinophils % 1.6 %; Hematocrit 17.8 % (35.3-44.9); Immature Granulocytes % 3.3 % (0-4); Immature Platelets 23.4 % (1.1-6.1); Lymphocytes # 0.8 K/mcL (0.6-4.6); Lymphocytes % 63.4 %; Mean Corpuscular HGB Conc 33.1 g/dL (31.6-35.5); Mean Corpuscular Hemoglobin 28.6 pg (28.0-33.3); Mean Corpuscular Volume 86.4 fL (83.0-100.0); Monocytes # 0.1 K/mcL (0.0-1.3); Monocytes % 8.9 %; Neutrophils # 0.3 K/mcL (1.6-8.9); Nucleated Red Blood Cells 1.6 /100 WBC (0); Red Blood Count 2.06 M/mcL (3.82-4.97); Red Cell Distribution Width 15.7 % (11.5-14.5); White Blood Count 1.2 K/mcL (4.3-11.1)
[2021-05-13 22:53] LABS: INR 1.5; Prothrombin Time 16.7 Seconds (9.4-12.1)
[2021-05-13 22:55] LABS: Activated Partial Thrombo Time 28.8 Seconds (26.0-36.0)
[2021-05-13 23:01] LABS: Alanine Aminotransferase 11 Units/L (7-52); Albumin 2.4 g/dL (3.5-5.7); Albumin/Globulin Ratio 0.6 (1.1-2.2); Alkaline Phosphatase 49 Units/L (34-104); Aspartate Amino Transferase 20 Units/L (13-39); BUN/Creatinine Ratio 24 (6-26); Bilirubin,Total 0.5 mg/dL (0.3-1.0); Blood Urea Nitrogen 21 mg/dL (8-23); Calcium 8.3 mg/dL (8.6-10.3); Carbon Dioxide 26 mEq/L (23-29); Chloride 99 mEq/L (98-107); Globulin 3.8 g/dL (2.4-3.5); Glucose 233 mg/dL (70-105); Osmolality,Calculated 284 (280-300); Sodium 132 mEq/L (136-145); Total Protein 6.2 g/dL (6.4-8.9); eGFR For African Americans > 60 (> 60); eGFR For Non-African Americans > 60 (> 60)
[2021-05-13 23:05] LABS: Hemoglobin 5.9 g/dL (11.5-15.4); Platelet Count 6 K/mcL (140-400)
[2021-05-13 23:24] LABS: Platelet Estimate Decreased (Normal)
[2021-05-13 23:26] LABS: Reactive Lymphocytes Present (Not Present)
[2021-05-13] MEDS ORDERED: Cefepime HCl 1,000 MG in 0.9 % Sodium Chloride Mini Bag 100 ML IVPB STA (23:29)
[2021-05-13 23:34] LABS: Influenza A PCR Negative (Negative); Influenza B PCR Negative (Negative); Resp. Syncytial Virus PCR Negative (Negative)
[2021-05-13 23:35] LABS: SARS-CoV-2 by PCR (In House) Negative (Negative)
[2021-05-14] MEDS ORDERED: 0.9 % Sodium Chloride 250 ML ONE (00:07)
[2021-05-14] MEDS ORDERED: Naloxone 0.4 MG/ML INJ IVP PRN (01:16)
[2021-05-14] MEDS ORDERED: Acetaminophen 325 MG TABLET PO PRN (01:16)
[2021-05-14] MEDS ORDERED: *HR* Dextrose 50 % in Water (Syg) 50 ML SYRINGE IVP PRN (01:19)
[2021-05-14] MEDS ORDERED: D5% in Water 1,000 ML IVC PRN (01:19)
[2021-05-14] MEDS ORDERED: Dextrose Gel 15 GM/37.5 ML TUBE PO PRN ×2 (01:19)
[2021-05-14] MEDS ORDERED: Ringers Solution, Lactated 500 ML IVC ONE (01:45)
[2021-05-14] MEDS: Ipratropium/Albuterol Neb 3 ML IH SCH ×7 (02:49→23:29)
[2021-05-14] MEDS ORDERED: Cefepime HCl 2,000 MG in Water for inj. (sterile) 20 ML IVP SCH (06:00)
[2021-05-14] MEDS: Budesonide/Formoterol 160/4.5 1 PUFF INH IH SCH ×2 (07:34→20:30)
[2021-05-14] MEDS: Lactobacillus 1 EACH CAP.SPRINK PO SCH ×2 (09:10→21:05)
[2021-05-14] MEDS: Nystatin SUSP 5 ML UD.LIQ PO SCH ×4 (09:10→21:05)
[2021-05-14] MEDS: Chlorhexidine Rinse 15 ML MOUTHWASH MM SCH ×2 (09:10→21:18)
[2021-05-14] MEDS: Insulin LISPRO 300 UNITS/3 ML VIAL SUBQ SCH ×4 (09:12→21:05)
[2021-05-14] MEDS: Fluconazole 100 MG TABLET PO SCH (10:17)
[2021-05-14] MEDS: Magic Mouthwash 10 ML UD Cup PO SCH ×3 (10:17→16:31)
[2021-05-14] MEDS: Acyclovir 200 MG CAPSULE PO SCH ×2 (10:17→21:19)
[2021-05-14 10:52] LABS: VBG HCO3 24 mEq/L (21-27); VBG PCO2 35 mmHg (41-51); VBG PH 7.45 pH Units (7.32-7.42); VBG PO2 91 mmHg (25-50)
[2021-05-14 11:01] LABS: Hematocrit 26.5 % (35.3-44.9); Hemoglobin 8.8 g/dL (11.5-15.4); Immature Platelets 4.7 % (1.1-6.1); Mean Corpuscular HGB Conc 33.2 g/dL (31.6-35.5); Mean Corpuscular Hemoglobin 28.1 pg (28.0-33.3); Mean Corpuscular Volume 84.7 fL (83.0-100.0); Mean Platelet Volume 9.2 fL (9.4-12.4); Monocytes # 0.1 K/mcL (0.0-1.3); Nucleated Red Blood Cells 1.9 /100 WBC (0); Red Blood Count 3.13 M/mcL (3.82-4.97); Red Cell Distribution Width 15.2 % (11.5-14.5)
[2021-05-14 11:02] LABS: Platelet Count 37 K/mcL (140-400); White Blood Count 1.1 K/mcL (4.3-11.1)
[2021-05-14 11:08] LABS: BUN/Creatinine Ratio 26 (6-26); Blood Urea Nitrogen 18 mg/dL (8-23); Calcium 8.3 mg/dL (8.6-10.3); Carbon Dioxide 24 mEq/L (23-29); Chloride 98 mEq/L (98-107); Glucose 340 mg/dL (70-105); Magnesium 1.3 mg/dL (1.6-2.6); Osmolality,Calculated 293 (280-300); Phosphorous 2.9 mg/dL (2.7-4.5); Potassium 3.9 mEq/L (3.5-5.1); Sodium 134 mEq/L (136-145); eGFR For African Americans > 60 (> 60); eGFR For Non-African Americans > 60 (> 60)
[2021-05-14 12:03] LABS: Lymphocytes # 0.4 K/mcL (0.6-4.6); Neutrophils # 0.7 K/mcL (1.6-8.9); Platelet Estimate Marked Decrease (Normal)
[2021-05-14] MEDS ORDERED: *HR* OxyCODONE/APAP 7.5/325 TABLET PO PRN (13:48)
[2021-05-14] MEDS ORDERED: Ondansetron ODT 4 MG TAB.RAPDIS SL PRN (13:49)
[2021-05-14] MEDS: Cefepime HCl 2,000 MG in Water for inj. (sterile) 20 ML IVP SCH (13:59)
[2021-05-14] MEDS: Gabapentin 100 MG CAPSULE PO SCH (21:19)
[2021-05-15] MEDS: Cefepime HCl 2,000 MG in Water for inj. (sterile) 20 ML IVP SCH ×2 (00:57→12:14)
[2021-05-15] MEDS: Ipratropium/Albuterol Neb 3 ML IH SCH ×6 (03:45→23:13)
[2021-05-15] MEDS: Budesonide/Formoterol 160/4.5 1 PUFF INH IH SCH ×2 (07:36→19:24)
[2021-05-15] MEDS: Nystatin SUSP 5 ML UD.LIQ PO SCH ×4 (08:44→20:48)
[2021-05-15] MEDS: Magic Mouthwash 10 ML UD Cup PO SCH ×3 (08:44→16:30)
[2021-05-15] MEDS: Gabapentin 100 MG CAPSULE PO SCH ×2 (08:44→20:49)
[2021-05-15] MEDS: Chlorhexidine Rinse 15 ML MOUTHWASH MM SCH ×2 (08:44→20:48)
[2021-05-15] MEDS: Lactobacillus 1 EACH CAP.SPRINK PO SCH ×2 (08:45→20:50)
[2021-05-15] MEDS: Insulin LISPRO 300 UNITS/3 ML VIAL SUBQ SCH ×4 (08:45→20:48)
[2021-05-15] MEDS: Fluconazole 100 MG TABLET PO SCH (08:45)
[2021-05-15] MEDS: Acyclovir 200 MG CAPSULE PO SCH ×2 (08:45→20:49)
[2021-05-15 08:56] LABS: Hematocrit 25.4 % (35.3-44.9); Hemoglobin 8.5 g/dL (11.5-15.4); Immature Platelets 5.1 % (1.1-6.1); Mean Corpuscular HGB Conc 33.5 g/dL (31.6-35.5); Mean Corpuscular Hemoglobin 28.2 pg (28.0-33.3); Mean Corpuscular Volume 84.4 fL (83.0-100.0); Mean Platelet Volume 9.3 fL (9.4-12.4); Red Blood Count 3.01 M/mcL (3.82-4.97); Red Cell Distribution Width 15.3 % (11.5-14.5)
[2021-05-15 09:03] LABS: White Blood Count 0.9 K/mcL (4.3-11.1)
[2021-05-15] MEDS ORDERED: *HR* OxyCODONE/APAP 7.5/325 TABLET PO PRN (12:21)
[2021-05-15] MEDS ORDERED: Insulin DETEMIR 100 UNIT/ML X5UNITS SUBQ SCH (21:00)
[2021-05-16] MEDS: Cefepime HCl 2,000 MG in Water for inj. (sterile) 20 ML IVP SCH ×2 (01:43→12:29)
[2021-05-16] MEDS: Ipratropium/Albuterol Neb 3 ML IH SCH ×4 (03:06→15:38)
[2021-05-16 05:55] LABS: Basophils % 1.2 %; Eosinophils % 1.2 %
[2021-05-16 05:56] LABS: Hematocrit 23.4 % (35.3-44.9); Hemoglobin 7.7 g/dL (11.5-15.4); Immature Granulocytes % 2.3 % (0-4); Immature Platelets 5.8 % (1.1-6.1); Lymphocytes # 0.6 K/mcL (0.6-4.6); Lymphocytes % 68.6 %; Mean Corpuscular HGB Conc 32.9 g/dL (31.6-35.5); Mean Corpuscular Hemoglobin 27.8 pg (28.0-33.3); Mean Corpuscular Volume 84.5 fL (83.0-100.0); Mean Platelet Volume 10.5 fL (9.4-12.4); Monocytes # 0.1 K/mcL (0.0-1.3); Monocytes % 8.1 %; Neutrophils # 0.2 K/mcL (1.6-8.9); Nucleated Red Blood Cells 2.3 /100 WBC (0); Red Blood Count 2.77 M/mcL (3.82-4.97); Segmented Neutrophils % 18.6 %
[2021-05-16 06:20] LABS: Platelet Count 13 K/mcL (140-400); White Blood Count 0.9 K/mcL (4.3-11.1)
[2021-05-16] MEDS: Budesonide/Formoterol 160/4.5 1 PUFF INH IH SCH (07:23)
[2021-05-16] MEDS: Chlorhexidine Rinse 15 ML MOUTHWASH MM SCH (09:38)
[2021-05-16] MEDS: Gabapentin 100 MG CAPSULE PO SCH (09:38)
[2021-05-16] MEDS: Magic Mouthwash 10 ML UD Cup PO SCH ×2 (09:38→12:29)
[2021-05-16] MEDS: Insulin LISPRO 300 UNITS/3 ML VIAL SUBQ SCH ×2 (09:38→12:29)
[2021-05-16] MEDS: Acyclovir 200 MG CAPSULE PO SCH (09:38)
[2021-05-16] MEDS: Lactobacillus 1 EACH CAP.SPRINK PO SCH (09:38)
[2021-05-16] MEDS: Nystatin SUSP 5 ML UD.LIQ PO SCH ×2 (09:38→12:29)
[2021-05-16] MEDS ORDERED: 0.9 % Sodium Chloride 250 ML ONE (14:16)
[2021-05-16 15:00] LABS: BUN/Creatinine Ratio 18 (6-26); Blood Urea Nitrogen 11 mg/dL (8-23); Vancomycin,Trough 8 mcg/mL (5-10); eGFR For African Americans > 60 (> 60); eGFR For Non-African Americans > 60 (> 60)
[2021-05-16 15:07] VITALS: TEMP 97.6
[2021-05-16] MEDS ORDERED: Isovue-370 500 ML BOTTLE IVP ONE (16:59)
[2021-05-16 17:06] VITALS: BP 138/68; PULSE 110; O2SAT 98
== END 2021-05-16 18:45 | disposition home or self-care (01) | DRG 871 ==
LOC: 3BNU 20:29 → EMEROOARM 20:29 → SUATTDRO 05-14 00:50 → 3BNU 05-14 01:19
PROVIDERS: ADMIT Family Medicine; ATTEND Registered Nurse

== ENCOUNTER 2021-05-26 16:52 | Inpatient (IN) ==
[2021-05-26] MEDS ORDERED: Naloxone 0.4 MG/ML INJ IVP PRN (21:24)
[2021-05-26] MEDS ORDERED: Ondansetron ODT 4 MG TAB.RAPDIS SL PRN (21:24)
[2021-05-26] MEDS ORDERED: Melatonin 3 MG TABLET PO PRN (21:24)
[2021-05-26] MEDS ORDERED: *HR* HYDROcodone/Acet 5/325 mg TABLET PO PRN (21:24)
[2021-05-26] MEDS ORDERED: Ipratropium/Albuterol Neb 3 ML IH PRN (21:59)
[2021-05-26 22:30] LABS: Hematocrit 25.2 % (35.3-44.9); Hemoglobin 8.3 g/dL (11.5-15.4); Immature Granulocytes % 3.2 % (0-4); Immature Platelets 6.5 % (1.1-6.1); Lymphocytes # 0.2 K/mcL (0.6-4.6); Lymphocytes % 61.3 %; Mean Corpuscular HGB Conc 32.9 g/dL (31.6-35.5); Mean Corpuscular Hemoglobin 28.5 pg (28.0-33.3); Mean Corpuscular Volume 86.6 fL (83.0-100.0); Mean Platelet Volume 10.5 fL (9.4-12.4); Monocytes % 9.7 %; Neutrophils # 0.1 K/mcL (1.6-8.9); Red Blood Count 2.91 M/mcL (3.82-4.97); Red Cell Distribution Width 14.2 % (11.5-14.5); Segmented Neutrophils % 25.8 %
[2021-05-26 22:35] LABS: Platelet Count 6 K/mcL (140-400); White Blood Count 0.3 K/mcL (4.3-11.1)
[2021-05-26 22:59] LABS: Hypochromasia Present (Not Present)
[2021-05-26 23:00] LABS: Platelet Estimate Marked Decrease (Normal)
[2021-05-27] MEDS ORDERED: 0.9 % Sodium Chloride 250 ML ONE (00:38)
[2021-05-27 02:37] LABS: Alanine Aminotransferase 8 Units/L (7-52); Albumin 2.5 g/dL (3.5-5.7); Albumin/Globulin Ratio 0.9 (1.1-2.2); Alkaline Phosphatase 42 Units/L (34-104); Aspartate Amino Transferase 10 Units/L (13-39); BUN/Creatinine Ratio 23 (6-26); Bilirubin,Total 0.7 mg/dL (0.3-1.0); Blood Urea Nitrogen 15 mg/dL (8-23); Calcium 7.9 mg/dL (8.6-10.3); Carbon Dioxide 29 mEq/L (23-29); Chloride 98 mEq/L (98-107); Globulin 2.9 g/dL (2.4-3.5); Glucose 297 mg/dL (70-105); Osmolality,Calculated 288 (280-300); Sodium 133 mEq/L (136-145); Total Protein 5.4 g/dL (6.4-8.9); eGFR For African Americans > 60 (> 60); eGFR For Non-African Americans > 60 (> 60)
[2021-05-27] MEDS ORDERED: D5% in Water 1,000 ML IVC PRN (07:33)
[2021-05-27] MEDS ORDERED: Dextrose Gel 15 GM/37.5 ML TUBE PO PRN ×2 (07:33)
[2021-05-27] MEDS ORDERED: *HR* Dextrose 50 % in Water (Syg) 50 ML SYRINGE IVP PRN (07:33)
[2021-05-27] MEDS ORDERED: *HR* OxyCODONE/APAP 7.5/325 TABLET PO PRN (07:34)
[2021-05-27] MEDS: Acyclovir 200 MG CAPSULE PO SCH ×2 (08:20→19:52)
[2021-05-27] MEDS: Gabapentin 100 MG CAPSULE PO SCH ×2 (08:20→19:52)
[2021-05-27] MEDS: Insulin LISPRO 300 UNITS/3 ML VIAL SUBQ SCH ×3 (11:31→19:55)
[2021-05-27 14:56] LABS: Hemoglobin 8.6 g/dL (11.5-15.4)
[2021-05-27 14:58] LABS: Hematocrit 25.7 % (35.3-44.9); Immature Granulocytes % 9.1 % (0-4); Immature Platelets 3.9 % (1.1-6.1); Lymphocytes % 59.1 %; Mean Corpuscular HGB Conc 33.5 g/dL (31.6-35.5); Mean Corpuscular Hemoglobin 28.8 pg (28.0-33.3); Mean Platelet Volume 9.2 fL (9.4-12.4); Monocytes # 0.1 K/mcL (0.0-1.3); Monocytes % 11.4 %; Neutrophils # 0.1 K/mcL (1.6-8.9); Red Blood Count 2.99 M/mcL (3.82-4.97); Segmented Neutrophils % 20.4 %
[2021-05-27 15:01] LABS: Lymphocytes # 0.2 K/mcL (0.6-4.6)
[2021-05-27 15:02] LABS: White Blood Count 0.4 K/mcL (4.3-11.1)
[2021-05-27 15:03] LABS: Platelet Count 24 K/mcL (140-400)
[2021-05-27 15:34] LABS: Platelet Estimate Marked Decrease (Normal)
[2021-05-27 20:59] LABS: Hematocrit 26.3 % (35.3-44.9); Hemoglobin 8.8 g/dL (11.5-15.4); Lymphocytes # 0.3 K/mcL (0.6-4.6); Lymphocytes % 65.9 %; Mean Corpuscular HGB Conc 33.5 g/dL (31.6-35.5); Mean Corpuscular Hemoglobin 28.9 pg (28.0-33.3); Mean Corpuscular Volume 86.5 fL (83.0-100.0); Mean Platelet Volume 9.5 fL (9.4-12.4); Monocytes % 9.8 %; Neutrophils # 0.1 K/mcL (1.6-8.9); Red Blood Count 3.04 M/mcL (3.82-4.97); Red Cell Distribution Width 14.1 % (11.5-14.5); Segmented Neutrophils % 24.3 %
[2021-05-27 21:04] LABS: White Blood Count 0.4 K/mcL (4.3-11.1)
[2021-05-27 21:05] LABS: Platelet Count 17 K/mcL (140-400)
[2021-05-27 21:15] LABS: Platelet Estimate Marked Decrease (Normal)
[2021-05-28 05:03] LABS: Eosinophils % 2.5 %; Hemoglobin 8.8 g/dL (11.5-15.4)
[2021-05-28 05:05] LABS: Hematocrit 26.3 % (35.3-44.9); Immature Platelets 4.8 % (1.1-6.1); Lymphocytes # 0.2 K/mcL (0.6-4.6); Lymphocytes % 52.5 %; Mean Corpuscular HGB Conc 33.5 g/dL (31.6-35.5); Mean Corpuscular Volume 86.8 fL (83.0-100.0); Mean Platelet Volume 9.1 fL (9.4-12.4); Monocytes # 0.1 K/mcL (0.0-1.3); Monocytes % 17.5 %; Neutrophils # 0.1 K/mcL (1.6-8.9); Red Blood Count 3.03 M/mcL (3.82-4.97); Red Cell Distribution Width 14.2 % (11.5-14.5); Segmented Neutrophils % 17.5 %
[2021-05-28 05:12] LABS: Platelet Count 16 K/mcL (140-400); White Blood Count 0.4 K/mcL (4.3-11.1)
[2021-05-28 05:17] LABS: BUN/Creatinine Ratio 27 (6-26); Blood Urea Nitrogen 16 mg/dL (8-23); Calcium 8.1 mg/dL (8.6-10.3); Carbon Dioxide 28 mEq/L (23-29); Chloride 96 mEq/L (98-107); Glucose 252 mg/dL (70-105); Magnesium 1.2 mg/dL (1.6-2.6); Osmolality,Calculated 284 (280-300); Phosphorous 2.4 mg/dL (2.7-4.5); Potassium 3.5 mEq/L (3.5-5.1); Sodium 132 mEq/L (136-145); eGFR For African Americans > 60 (> 60); eGFR For Non-African Americans > 60 (> 60)
[2021-05-28 05:29] LABS: Platelet Estimate Marked Decrease (Normal)
[2021-05-28] MEDS: Gabapentin 100 MG CAPSULE PO SCH ×2 (07:51→20:05)
[2021-05-28] MEDS: Acyclovir 200 MG CAPSULE PO SCH ×2 (07:51→20:05)
[2021-05-28] MEDS: Insulin LISPRO 300 UNITS/3 ML VIAL SUBQ SCH ×4 (07:52→20:06)
[2021-05-28] MEDS: carvediloL 6.25 MG TABLET PO SCH ×2 (11:14→16:33)
[2021-05-28] MEDS: predniSONE 20 MG TABLET PO SCH (11:14)
[2021-05-28] MEDS ORDERED: Insulin DETEMIR 100 UNIT/ML X5UNITS SUBQ SCH (21:00)
[2021-05-29 05:39] LABS: Eosinophils % 3.4 %; Hematocrit 24.1 % (35.3-44.9); Hemoglobin 8.1 g/dL (11.5-15.4); Immature Granulocytes % 1.7 % (0-4); Lymphocytes # 0.5 K/mcL (0.6-4.6); Mean Corpuscular HGB Conc 33.6 g/dL (31.6-35.5); Mean Corpuscular Hemoglobin 29.2 pg (28.0-33.3); Mean Platelet Volume 9.6 fL (9.4-12.4); Monocytes % 6.8 %; Neutrophils # 0.1 K/mcL (1.6-8.9); Red Blood Count 2.77 M/mcL (3.82-4.97); Red Cell Distribution Width 13.9 % (11.5-14.5); Segmented Neutrophils % 10.1 %
[2021-05-29 05:44] LABS: Platelet Count 9 K/mcL (140-400)
[2021-05-29 05:45] LABS: BUN/Creatinine Ratio 38 (6-26); Blood Urea Nitrogen 26 mg/dL (8-23); Calcium 8.3 mg/dL (8.6-10.3); Carbon Dioxide 31 mEq/L (23-29); Chloride 96 mEq/L (98-107); Glucose 297 mg/dL (70-105); Magnesium 1.7 mg/dL (1.6-2.6); Osmolality,Calculated 290 (280-300); Phosphorous 3.1 mg/dL (2.7-4.5); Potassium 3.8 mEq/L (3.5-5.1); Sodium 132 mEq/L (136-145); White Blood Count 0.6 K/mcL (4.3-11.1); eGFR For African Americans > 60 (> 60); eGFR For Non-African Americans > 60 (> 60)
[2021-05-29] MEDS ORDERED: 0.9 % Sodium Chloride 250 ML IVC SCH (06:00)
[2021-05-29 06:20] LABS: Reactive Lymphocytes Present (Not Present)
[2021-05-29 06:21] LABS: Platelet Estimate Marked Decrease (Normal)
[2021-05-29] MEDS: Insulin LISPRO 300 UNITS/3 ML VIAL SUBQ SCH ×4 (08:20→20:37)
[2021-05-29] MEDS: Gabapentin 100 MG CAPSULE PO SCH ×2 (08:21→20:01)
[2021-05-29] MEDS: levoFLOXacin 750 MG TABLET PO SCH (08:21)
[2021-05-29] MEDS: carvediloL 6.25 MG TABLET PO SCH ×2 (08:22→17:11)
[2021-05-29] MEDS: Acyclovir 200 MG CAPSULE PO SCH ×2 (08:22→20:01)
[2021-05-29] MEDS: predniSONE 20 MG TABLET PO SCH (08:22)
[2021-05-29] MEDS ORDERED: E-Z-PAQUE (BARIUM SULF) SUSP 1 BOTTLE PO ONE (19:34)
[2021-05-29] MEDS ORDERED: E-Z-HD (BARIUM SULF) SUSPENSION PO ONE (19:34)
[2021-05-29] MEDS ORDERED: QUEtiapine Fumarate 25 MG TABLET PO ONE (19:52)
[2021-05-29] MEDS ORDERED: Insulin DETEMIR 100 UNIT/ML X5UNITS SUBQ SCH (21:00)
[2021-05-29] MEDS ORDERED: *HR* LORazepam 2 MG/ML VIAL IVP ONE (22:13)
[2021-05-30 08:11] LABS: Hemoglobin 7.2 g/dL (11.5-15.4); Mean Corpuscular Volume 87.3 fL (83.0-100.0)
[2021-05-30 08:13] LABS: Eosinophils % 1.2 %; Hematocrit 21.3 % (35.3-44.9); Immature Platelets 7.5 % (1.1-6.1); Lymphocytes # 0.7 K/mcL (0.6-4.6); Lymphocytes % 84.3 %; Mean Corpuscular HGB Conc 33.8 g/dL (31.6-35.5); Mean Corpuscular Hemoglobin 29.5 pg (28.0-33.3); Mean Platelet Volume 11.4 fL (9.4-12.4); Monocytes # 0.1 K/mcL (0.0-1.3); Monocytes % 9.6 %; Red Blood Count 2.44 M/mcL (3.82-4.97); Red Cell Distribution Width 13.5 % (11.5-14.5); Segmented Neutrophils % 4.9 %
[2021-05-30 08:18] LABS: Platelet Count 18 K/mcL (140-400)
[2021-05-30 08:19] LABS: White Blood Count 0.8 K/mcL (4.3-11.1)
[2021-05-30 09:00] LABS: Platelet Estimate Marked Decrease (Normal)
[2021-05-30] MEDS: Acyclovir 200 MG CAPSULE PO SCH (09:09)
[2021-05-30] MEDS: carvediloL 6.25 MG TABLET PO SCH (09:09)
[2021-05-30] MEDS: Gabapentin 100 MG CAPSULE PO SCH (09:09)
[2021-05-30] MEDS: predniSONE 20 MG TABLET PO SCH (09:09)
[2021-05-30] MEDS: levoFLOXacin 750 MG TABLET PO SCH (09:09)
[2021-05-30] MEDS: Insulin LISPRO 300 UNITS/3 ML VIAL SUBQ SCH ×2 (09:12→12:06)
[2021-05-30 09:15] LABS: Alanine Aminotransferase 18 Units/L (7-52); Albumin 2.3 g/dL (3.5-5.7); Albumin/Globulin Ratio 0.8 (1.1-2.2); Alkaline Phosphatase 42 Units/L (34-104); Aspartate Amino Transferase 31 Units/L (13-39); BUN/Creatinine Ratio 33 (6-26); Bilirubin,Total 0.3 mg/dL (0.3-1.0); Blood Urea Nitrogen 23 mg/dL (8-23); Calcium 7.9 mg/dL (8.6-10.3); Carbon Dioxide 28 mEq/L (23-29); Chloride 100 mEq/L (98-107); Globulin 2.8 g/dL (2.4-3.5); Glucose 148 mg/dL (70-105); Osmolality,Calculated 286 (280-300); Potassium 3.6 mEq/L (3.5-5.1); Sodium 135 mEq/L (136-145); Total Protein 5.1 g/dL (6.4-8.9); eGFR For African Americans > 60 (> 60); eGFR For Non-African Americans > 60 (> 60)
[2021-05-30 11:00] VITALS: BP 119/66; PULSE 88; TEMP 97.9; O2SAT 97
== END 2021-05-30 12:34 | disposition home health service (06) | DRG 811 ==
LOC: 2ANU → SUATTDRO 20:50
PROVIDERS: ADMIT Internal Medicine; ATTEND Internal Medicine